=== PATIENT | female | born 1960 | race Caucasian/White ===

== ENCOUNTER 2020-04-08 11:35 | Emergency (ER) | payer OTHER ==
[2020-04-08 12:30] LABS: ABSOLUTE EOSINOPHILS # (AUTO) 0.1 10^3/uL (0.0-0.6); ABSOLUTE LYMPHOCYTES (AUTO) 1.3 10^3/uL (0.5-4.7); ABSOLUTE MONOCYTES (AUTO) 0.3 10^3/uL (0.1-1.4); ABSOLUTE NEUT (AUTO) 3.8 10^3/uL (1.7-8.2); BASOPHILS % (AUTO) 0.7 % (0-2); EOSINOPHILS % (AUTO) 1.4 % (0-6); HEMATOCRIT 40.8 % (36.0-47.0); HEMOGLOBIN 13.6 g/dL (12.0-15.5); LYMPHOCYTES % (AUTO) 23.1 % (13-45); MEAN CORPUSCULAR HEMOGLOBIN 30.2 pg (27.0-33.4); MEAN CORPUSCULAR HGB CONC 33.4 g/dL (32.0-36.0); MEAN CORPUSCULAR VOLUME 90 fl (80-97); MONOCYTES % (AUTO) 5.5 % (3-13); PLATELET COUNT 205 10^3/uL (150-450); RED BLOOD COUNT 4.51 10^6/uL (3.72-5.28); RED CELL DISTRIBUTION WIDTH 13.8 % (11.5-14.0); SEGMENTED NEUTROPHILS % (AUTO) 69.3 % (42-78); TOTAL CELLS COUNTED % (AUTO) 100 %; WHITE BLOOD COUNT 5.5 10^3/uL (4.0-10.5)
[2020-04-08 12:31] LABS: AMORPHOUS SEDIMENT,URINE TRACE /HPF; APPEARANCE,URINE CLOUDY; BILIRUBIN,URINE NEGATIVE (NEGATIVE); COLOR,URINE YELLOW; GLUCOSE, URINE NEGATIVE (NEGATIVE); KETONES,URINE NEGATIVE (NEGATIVE); LEUKOCYTE ESTERASE,URINE NEGATIVE (NEGATIVE); NITRITE,URINE NEGATIVE (NEGATIVE); PROTEIN,URINE NEGATIVE (NEGATIVE); URINE SPECIFIC GRAVITY 1.015; UROBILINOGEN,URINE NEGATIVE mg/dL (<2.0)
[2020-04-08 12:47] LABS: ALBUMIN 3.8 g/dL (3.5-5.0); ALKALINE PHOSPHATASE 51 U/L (38-126); ANION GAP 6 (5-19); ASPARTATE AMINO TRANSFERASE 24 U/L (14-36); BILIRUBIN,TOTAL 0.3 mg/dL (0.2-1.3); BLOOD UREA NITROGEN 17 mg/dL (7-20); CALCIUM 9.6 mg/dL (8.4-10.2); CARBON DIOXIDE 24 mmol/L (22-30); CHLORIDE 109 mmol/L (98-107); GLUCOSE 104 mg/dL (75-110); TOTAL PROTEIN 6.6 g/dL (6.3-8.2)
[2020-04-08] MEDS ORDERED: MECLIZINE HCL 25 MG TABLET PO ONE (13:38)
[2020-04-08] MEDS ORDERED: NORMAL SALINE 1000 ML 1,000 ML IV ONE (13:38)
[2020-04-08] MEDS ORDERED: DIAZEPAM INJ 10 MG/2 ML DISP.SYRIN IV ONE (13:39)
[2020-04-08 13:57] LABS: INTERNATIONAL RATION (INR) 1.01; PROTHROMBIN TIME 13.4 SEC (11.4-15.4)
--- NOTE | 2020-04-08 14:12 | ER Document Report ---
ED General - General Chief Complaint: Nausea/Vomiting Stated Complaint: NAUSEA Time Seen by Provider: 04/08/20 13:09 Notes: CHIEF COMPLAINT: Acute dizziness with vomiting HPI: 59-year-old female with history of hypertension presenting for evaluation of acute dizziness and vomiting that began when she woke up this morning at 9 AM. No history of vertigo. Patient states that when she moves her head the room spins and she starts to throw up. Having difficulty walking because of the dizziness and lightheadedness. No headache. No visual loss. No weakness in the arms or legs. No stroke history. Patient did recently traveled down here from [place] because she has a house down here but denies upper respiratory cough or cold symptoms. ROS: See HPI - all other systems were reviewed and are otherwise negative Constitutional: no fever Eyes: no drainage, no blurred vision ENT: no runny nose, no sore throat Cardiovascular: no chest pain Resp: no SOB, no cough GI: + vomiting, no diarrhea, no abdominal pain : no dysuria Integumentary: no rash Allergy: no hives Musculoskeletal: no extremity pain or swelling Neurological: no numbness/tingling, no weakness, positive dizziness MEDICATIONS: I agree with the patient medications as charted by the RN. ALLERGIES: I agree with the allergies as charted by the RN. PAST MEDICAL HISTORY/PAST SURGICAL HISTORY: Reviewed and agree as charted by RN. SOCIAL HISTORY: Reviewed and agree as charted by RN. FAMILY HISTORY: No significant familial comorbid conditions directly related to patient complaint EXAM: Reviewed vital signs as charted by RN. CONSTITUTIONAL: Alert and oriented and responds appropriately to questions. Well-appearing; well-nourished HEAD: Normocephalic; atraumatic EYES: PERRL; Conjunctivae clear, sclerae non-icteric. Positive vertical and horizontal nystagmus ENT: normal nose; no rhinorrhea; moist mucous membranes; pharynx without lesions noted, no uvula edema or deviation, no tonsillar hypertrophy, phonation normal NECK: Supple without meningismus; non-tender; no cervical lymphadenopathy, no masses CARD: RRR; no murmurs, no clicks, no rubs, no gallops; symmetric distal pulses RESP: Normal chest excursion without splinting or tachypnea; breath sounds clear and equal bilaterally; no wheezes, no rhonchi, no rales, pulse oximetry 98% on room air not hypoxic ABD/GI: Normal bowel sounds; non-distended; soft, non-tender, no rebound, no guarding; no palpable organomegaly or masses. BACK: The back appears normal and is non-tender to palpation, there is no CVA tenderness EXT: Normal ROM in all joints; non-tender to palpation; no cyanosis, no effusion s, no edema SKIN: Normal color for age and race; warm; dry; good turgor; no acute lesions noted NEURO: Moves all extremities equally; Motor and sensory function intact. No facial droop. Speech is not slurred. Face symmetric. Tongue protrudes midline. Extraocular motions intact. Pupils are 3 mm and equally reactive. Normal speech, normal gait. 5 out of 5 strength in both the distal and proximal upper and lower extremities bilaterally. Sensation is grossly intact throughout. Finger to nose testing normal. PSYCH: The patient's mood and manner are appropriate. Grooming and personal hygiene are appropriate. MDM: 59-year-old female with acute vertigo with nausea vomiting. Does seem to be somewhat positional. No history of vertigo. Discussed with Dr. Woo attending there is some concern for posterior CVA. Will obtain MRI - Related Data Allergies/Adverse Reactions: No Known Allergies Allergy (Verified 04/08/20 12:15) Past Medical History - Social History Smoking Status: Never Smoker Family History: Reviewed & Not Pertinent Patient has homicidal ideation: No Physical Exam - Vital signs Vitals: Temp Pulse Resp BP Pulse Ox 97.8 F 74 19 138/84 H 98 04/08/20 12:18 04/08/20 12:18 04/08/20 12:18 04/08/20 12:18 04/08/20 12:18 Course - Re-evaluation Re-evalutation: 04/08/20 16:59 EKG normal sinus rhythm with a ventricular rate of 66. No other ectopy. UT 160, normal EKG, interpreted by emergency physician. Patient was able to ambulate with minimal assistance. States she feels much better after meclizine and Valium. MRI/MRA of the head does not show evidence of an acute stroke does show some microvascular changes which I discussed with the patient. When she returns home to [place] she will follow-up with cardiology. Patient will also follow-up with ENT. We will continue patient on Antivert, Zofran, return instructions. - Vital Signs Vital signs: Temp Pulse Resp BP Pulse Ox 97.8 F 74 15 134/88 H 96 04/08/20 12:18 04/08/20 12:18 04/08/20 16:13 04/08/20 16:13 04/08/20 16:13 - Laboratory Result Diagrams: 04/08/20 11:44 04/08/20 11:44 Laboratory results interpreted by me: 04/08/20 11:44 Chloride 109 H Discharge - Discharge Clinical Impression: Acute severe vertigo Vomiting Qualifiers: Vomiting type: unspecified Vomiting Intractability: non-intractable Nausea presence: with nausea Qualified Code(s): R11.2 - Nausea with vomiting, unspecified Condition: Stable Disposition: HOME, SELF-CARE Additional Instructions: Take the Antivert for the vertigo symptoms. Take Zofran for nausea vomiting. Return for inability to stand or worsening symptoms otherwise follow-up with ENT and cardiology as discussed. Your MRI today did not show evidence of an acute stroke Prescriptions: Meclizine HCl [Antivert 25 mg Tablet] 25 mg PO TID PRN #21 tablet PRN Reason: Ondansetron [Zofran Odt 4 mg Tablet] 1 - 2 tab PO Q4H PRN #15 tab.rapdis PRN Reason: For Nausea/Vomiting Referrals: MISTI GONZALEZ DO [ASSOCIATE] - Follow up as needed SCOTTY GARIBAY MD [ACTIVE STAFF] - Follow up as needed
--- NOTE | 2020-04-08 15:57 | RADIOLOGY REPORT (SQ) ---
EXAM DESCRIPTION: MRA HEAD WITHOUT; MRI HEAD WITHOUT IMAGES COMPLETED DATE/TIME: 04/08/2020 3:38 pm REASON FOR STUDY: eval for cva; eval for post cva COMPARISON: None. TECHNIQUE: Multiplanar imaging includes non-contrasted T1, T2, FLAIR, and Diffusion with ADC map seq uences. Images stored on PACS. LIMITATIONS: None. FINDINGS: ANATOMY: No anomalies. Normal vascular flow voids. Pituitary fossa normal. CSF SPACES: Normal in size and contour. No hemorrhage. CEREBRUM: Scattered foci of T2 prolongation are seen throughout the periventricular and subcortical w vy matter. Sulci and gyri normal in size and contour. No evidence of hemorrhage, mass or extraaxi al fluid collection. POSTERIOR FOSSA: No signal alteration. No hemorrhage. No edema, masses or mass effect. Internal elisha tory canals, cerebello-pontine angles, mastoids normal. DIFFUSION: Negative for acute or sub-acute infarction. ORBITS: No masses. Globes normal. PARANASAL SINUSES: No fluid levels. Mucosa normal. OTHER: No other significant finding. MRA [place]: SOURCE IMAGES: No unexpected findings on source images. No large masses. 3-D MIP: No aneurysm. No occlusions. No significant stenosis. OTHER: No other significant finding. IMPRESSION: No evidence of acute or subacute ischemic injury. Scattered foci of T2 prolongation see n throughout the periventricular and subcortical white matter are nonspecific and may represent chron ic microvascular ischemic changes. Other demyelinating etiologies are not excluded. Normal MRA of t he [place]. EVIDENCE OF ACUTE STROKE: NO. TECHNICAL DOCUMENTATION: JOB ID: [id number] 2010 [employer]- All Rights Reserved Reading location - IP/workstation name: [email or web address]
--- NOTE | 2020-04-08 15:57 | RADIOLOGY REPORT (SQ) ---
EXAM DESCRIPTION: MRA HEAD WITHOUT; MRI HEAD WITHOUT IMAGES COMPLETED DATE/TIME: 04/08/2020 3:38 pm REASON FOR STUDY: eval for cva; eval for post cva COMPARISON: None. TECHNIQUE: Multiplanar imaging includes non-contrasted T1, T2, FLAIR, and Diffusion with ADC map seq uences. Images stored on PACS. LIMITATIONS: None. FINDINGS: ANATOMY: No anomalies. Normal vascular flow voids. Pituitary fossa normal. CSF SPACES: Normal in size and contour. No hemorrhage. CEREBRUM: Scattered foci of T2 prolongation are seen throughout the periventricular and subcortical w vy matter. Sulci and gyri normal in size and contour. No evidence of hemorrhage, mass or extraaxi al fluid collection. POSTERIOR FOSSA: No signal alteration. No hemorrhage. No edema, masses or mass effect. Internal elisha tory canals, cerebello-pontine angles, mastoids normal. DIFFUSION: Negative for acute or sub-acute infarction. ORBITS: No masses. Globes normal. PARANASAL SINUSES: No fluid levels. Mucosa normal. OTHER: No other significant finding. MRA [place]: SOURCE IMAGES: No unexpected findings on source images. No large masses. 3-D MIP: No aneurysm. No occlusions. No significant stenosis. OTHER: No other significant finding. IMPRESSION: No evidence of acute or subacute ischemic injury. Scattered foci of T2 prolongation see n throughout the periventricular and subcortical white matter are nonspecific and may represent chron ic microvascular ischemic changes. Other demyelinating etiologies are not excluded. Normal MRA of t he [place]. EVIDENCE OF ACUTE STROKE: NO. TECHNICAL DOCUMENTATION: JOB ID: [id number] 2010 [employer]- All Rights Reserved Reading location - IP/workstation name: [email or web address]
[2020-04-08 18:17] VITALS: BP 139/90
[2020-04-08] MEDS ORDERED: ONDANSETRON HCL INJ/PF 4 MG/2 ML SDV IV ONE (18:17)
--- NOTE | 2020-04-08 22:07 | EKG REPORT ---
SEVERITY:- NORMAL ECG - SINUS RHYTHM : Confirmed by: Chanda Sexton MD 08-Apr-2020 22:06:16
== END 2020-04-08 18:35 | disposition home or self-care (01) ==
LOC: ER 11:35
DX: R42 Dizziness and giddiness (principal); R11.2 Nausea with vomiting, unspecified; I10 Essential (primary) hypertension
CPT/HCPCS: 93005; 99284; 96361; 96374; 96375; 36415; 83690; 85025; 85610; 80053; 81001; 84484; 70551; 70544; 93010; J3360; J2405; J7030